=== PATIENT | female | born 1945 | race Caucasian/White ===

== ENCOUNTER → 2023-06-11 08:04 | Outpatient (REF) | payer MEDICARE, OTHER, SELFPAY | LOC: DHCBC MAIN 08:04 | PROVIDERS: ATTENDING PHYSICIAN Internal Medicine Cardiovascular Disease; FAMILY PHYSICIAN Internal Medicine | DX: R00.1 Bradycardia, unspecified (principal); I35.0 Nonrheumatic aortic (valve) stenosis | CPT/HCPCS: 93306 ==

== ENCOUNTER → 2023-07-08 08:49 | Outpatient (REF) | payer MEDICARE, OTHER, SELFPAY ==
[2023-07-08 09:22] LABS: % Basophils 0.6 % (0-2); % Eosinophils 1.3 % (0-6); % Immature Granulocytes 0.1 % (0-0.5); % Monocytes 10.4 % (1.7-9.3); % Neutrophils 60.6 % (42.2-75.2); Absolute Eosinophils 0.1 10^3/uL (0-0.7); Absolute Lymphocytes 1.8 10^3/uL (1.2-3.4); Absolute Monocytes 0.7 10^3/uL (0.1-0.6); Absolute Neutrophils 4.1 10^3/uL (1.4-6.5); Hematocrit 41.2 % (37.0-47.0); Hemoglobin 13.5 g/dL (12.0-16.0); Mean Corp Hgb Conc. 32.8 g/dL (33.0-37.0); Mean Corpuscular Hgb 30.7 pg (27.0-31.0); Mean Corpuscular Volume 93.6 fL (81.0-99.0); Mean Platelet Volume 10.3 fL (7.4-10.4); Nucleated Red Blood Cells % 0 %; Platelet Count 209 10^3/uL (130-400); Red Cell Dist. Width 13.3 % (11.5-14.5); White Blood Cell Count 6.7 10^3/uL (4.8-10.8)
[2023-07-08 09:40] LABS: ALT (SGPT) 24 U/L (0-35); AST (SGOT) 29 U/L (14-36); Albumin 4.2 g/dl (3.5-5.0); Alkaline Phosphatase 56 U/L (38-126); Blood Urea Nitrogen 29 mg/dl (7-17); Calcium 9.7 mg/dl (8.4-10.2); Carbon Dioxide 32 mmol/L (22-30); Chloride 102 mmol/L (98-107); Glucose 107 mg/dl (70-99); HDL Cholesterol 102 mg/dl; LDL Cholesterol, Calculated 112 mg/dl; Potassium 3.8 mmol/L (3.5-5.1); Sodium 140 mmol/L (135-145); Total Bilirubin 0.7 mg/dl (0.2-1.3); Total Cholesterol 227 mg/dl (50-199); Total Protein 6.9 g/dl (6.3-8.2); Triglyceride 67 mg/dl (10-149); Very Low Density Lipoprotein 13 mg/dl (0-30); eGFR > 60.00
[2023-07-08 10:39] LABS: TSH Reflex To Free T4 0.82 uIU/ml (0.47-4.68)
== END ==
LOC: REG 08:49
PROVIDERS: ATTENDING PHYSICIAN Internal Medicine
DX: E03.9 Hypothyroidism, unspecified (principal); E78.89 Other lipoprotein metabolism disorders; R42 Dizziness and giddiness
CPT/HCPCS: 36415; 80053; 80061; 84443; 85025

== ENCOUNTER 2023-09-11 10:54 | Emergency (ER) | payer MEDICARE, OTHER, SELFPAY ==
[2023-09-11 11:06] VITALS: BP 129/60
[2023-09-11 11:26] VITALS: BMI 22.4
--- NOTE | 2023-09-11 11:32 | ED.GENMED ---
History of Present Illness
<James Whitmore, DO - Last Filed: 09/11/23 13:30>
General
Chief Complaint: Heart Rate Problem
Source: patient
Exam Limitations: none
Time Seen by Provider: 09/11/23 11:25
History of Present Illness
History of Present Illness:
See MDM
Past History
<James Whitmore, DO - Last Filed: 09/11/23 13:30>
Past History
ED Past Medical History: None, Hypothyroidism and Other ( Ulcers in the 90's, kidney stones)
ED Past Surgical History: Appendectomy (gastrectomy)
Social History
Tobacco: Non-smoker
Alcohol: Occasional
Personal:
Living: with family
Phy Exam
<James Whitmore, DO - Last Filed: 09/11/23 13:30>
Physical Exam
Physical Exam:
See MDM
Course
<James Whitmore, DO - Last Filed: 09/11/23 13:30>
Orders/Labs/Results
Orders:
Orders
09/11/23 11:10
ECG [Electrocardiogram (*1)] Urgent
Reason for Study: Bradycardia / Tachycardia
EKG- Treatment ONCE
09/11/23 11:39
Complete Blood Count/With Diff Urgent
Comprehensive Metabolic Panel Urgent
Magnesium Urgent
PTT Urgent
Prothrombin Time Urgent
TSH Reflex To Free T4 Urgent
Troponin I Urgent
09/11/23 13:25
Consult Cardiology [CARDIOLOGY CONSULT] Routine
Consulting Provider: Carlos Pedro
Was physician already notified: Yes
Abnormal Lab Results
09/11/23
11:39
RBC 4.19 L 10^6/uL
(4.20-5.40)
MCH 32.0 H pg
(27.0-31.0)
Carbon Dioxide 32 H mmol/L
(22-30)
BUN 33 H mg/dl
(7-17)
Glucose 135 H mg/dl
(70-99)
09/11/23 11:39
09/11/23 11:39
Vital Signs
Initial and Last Documented VS:
Initial Vital Signs
Temp Pulse Resp BP Pulse Ox
97.5 F 34 18 129/60 97
09/11/23 11:06 09/11/23 11:06 09/11/23 11:06 09/11/23 11:06 09/11/23 11:06
Last Documented Vital Signs
Temp Pulse Resp BP Pulse Ox
97.5 F 52 15 132/52 97
09/11/23 11:06 09/11/23 13:00 09/11/23 13:00 09/11/23 12:00 09/11/23 12:15
<Bharathi Ross, - Last Filed: 09/11/23 14:56>
Orders/Labs/Results
Orders:
Orders
09/11/23 11:10
ECG [Electrocardiogram (*1)] Urgent
Reason for Study: Bradycardia / Tachycardia
EKG- Treatment ONCE
09/11/23 11:39
Complete Blood Count/With Diff Urgent
Comprehensive Metabolic Panel Urgent
Magnesium Urgent
PTT Urgent
Prothrombin Time Urgent
TSH Reflex To Free T4 Urgent
Troponin I Urgent
09/11/23 13:25
Consult Cardiology [CARDIOLOGY CONSULT] Routine
Consulting Provider: Carlos Pedro
Was physician already notified: Yes
Abnormal Lab Results
09/11/23
11:39
RBC 4.19 L 10^6/uL
(4.20-5.40)
MCH 32.0 H pg
(27.0-31.0)
Carbon Dioxide 32 H mmol/L
(22-30)
BUN 33 H mg/dl
(7-17)
Glucose 135 H mg/dl
(70-99)
09/11/23 11:39
09/11/23 11:39
Vital Signs
Initial and Last Documented VS:
Initial Vital Signs
Temp Pulse Resp BP Pulse Ox
97.5 F 34 18 129/60 97
09/11/23 11:06 09/11/23 11:06 09/11/23 11:06 09/11/23 11:06 09/11/23 11:06
Last Documented Vital Signs
Temp Pulse Resp BP Pulse Ox
97.5 F 52 15 132/52 97
09/11/23 11:06 09/11/23 13:00 09/11/23 13:00 09/11/23 12:00 09/11/23 12:15
<James Whitmore, DO - Last Filed: 09/11/23 13:30>
MDM/Problems Addressed
Differential Diagnosis Includes:
HPI and MDM Narrative:
78-year-old female presenting for evaluation of bradycardia. Patient was receiving physical therapy and the therapist noted that her pulse was ranging anywhere from 20-40. Patient does admit to mild weakness and fatigue. This is new for the
patient. She denies any prior cardiac related issues. She does see Dr. Lopez from cardiology but denies prior history of stents. Patient currently denying chest pain or shortness of breath. While lying in bed, she denies any complaints
Given the symptomatic bradycardia, will obtain basic blood work and discussed case with cardiology
Physical exam
General: Well appearing and non-toxic
HEENT: protecting airway
Neck: appears supple
CV: No evidence of cyanosis. Bradycardic
Resp: No accessory muscle use
Abd: Non-distended
Extremities: No deformities
Neuro: alert
Psych: Normal affect
Skin: Intact
Problems Addressed including Acute and Chronic Conditions affecting care:
1. Symptomatic bradycardia
Acuity: acute
Prognosis: stable
Details: Given her symptoms, will obtain basic blood work and discussed case with cardiology
Updates
Blood work without clinical significance. Patient remains symptom-free. Patient intermittently going into bigeminy
Case discussed with cardiology who will evaluate
Differential Diagnosis (but not limited to): Hypothyroidism, bradycardia, AV block
Testing considered: Chest x-ray
Drug therapy (if applicable): OTC meds, please see d/c instruction regarding Rx drugs
Amount and/or Complexity of Data Reviewed
Clinical info obtained from: Patient
External data reviewed: N/A
Labs I independently reviewed (but not limited to): Electrolytes, troponin and thyroid within normal limits
Radiology: N/A
Pulse Ox: not hypoxic
EKG independently reviewed: Sinus bradycardia, normal axis, no STEMI
Vat Cleaner: Sinus bradycardia with multiple PVCs
Critical Care: N/A
Risk of Complication:
Social Determinants of health: Good social support
Discussed with other providers: Cardiology
Escalation of Care includes Admit/Obs: Disposition will be made pending cardiology evaluation
Occasional wrong word or 'sound a like' substitutions may have occurred due to the inherent limitations of voice recognition software. Read the chart carefully and recognize, using context, where substitutions have occurred.
<James Whitmore, DO - Last Filed: 09/11/23 13:30>
*Critical Care Note
Total Time (30-74mins, 75-104mins- exclusive of procedures): Not Applicable
<Bharathi Ross, DO - Last Filed: 09/11/23 14:56>
Update Note
Update Note:
Patient seen and examined by Dr. Pedro. Aware of sinus bradycardia and feels she is stable for outpatient follow-up and management. Patient does remain otherwise hemodynamically stable and grossly asymptomatic. Dr. Pedro arranged outpatient
follow-up
ED Attending Note
<James Whitmore, DO - Last Filed: 09/11/23 13:30>
-
Portions of this chart may have been created with voice recognition software.� Occasional wrong word or��sound alike� substitutions may have occurred due to the inherent limitations of voice recognition software.
Discharge Plan
Departure
Patient Disposition: Home (Routine Discharge)
Date of Disposition: 09/11/23
Time of Disposition: 14:55
Patient with high blood pressure during this ER visit?: No
Discharge Problem:
Bradyarrhythmia
Prescriptions:
No Action
levothyroxine 25 MCG tablet
25 mcg PO DAILY
hydrochlorothiazide [Microzide] 12.5 MG capsule
12.5 mg PO DAILY
coenzyme Q10 [CoQ-10] 100 MG capsule
100 mg PO DAILY
aspirin [Guillermo Low Dose Aspirin] 81 MG tablet,delayed release (DR/EC)
81 mg PO DAILY
glucosamine-chondroitin [Cosamin DS] 1 EACH tablet
2 ea PO DAILY
levocetirizine [Xyzal] 5 MG tablet
5 mg PO HS
Women's 50 Plus Daily Formula 1 EACH tablet
2 ea PO DAILY
cholecalciferol (vitamin D3) [Vitamin D3] 2,000 UNIT capsule
2,000 unit PO DAILY
Referrals:
Anabel Yancey MD [Family Provider] -
Activity Restrictions/Additional Instructions:
Please follow-up with cardiology as advised. Return immediately for passing out episode, shortness of breath, weakness, or any other concerns.
Interventions
Interventions:
*Risk Screen - Suicide Last Done: 09/11/23 11:09
*General Assessment Last Done: 09/11/23 11:07
*Neglect/Abuse Screening Last Done: 09/11/23 11:07
ED- Fall Risk Assessment Last Done: 09/11/23 11:28
*ED COVID-19 Vaccine History Last Done: 09/11/23 11:31
ED- Cardiac Assessment Last Done: 09/11/23 11:28
ED- Pulmonary Assessment Last Done: 09/11/23 11:28
Discharge Date and Time
Print Language: SERBIAN
[2023-09-11 11:50] LABS: % Basophils 0.4 % (0-2); % Eosinophils 1.4 % (0-6); % Immature Granulocytes 0.1 % (0-0.5); % Lymphocytes 20.5 % (20.5-51.1); % Monocytes 8.2 % (1.7-9.3); % Neutrophils 69.4 % (42.2-75.2); Absolute Eosinophils 0.1 10^3/uL (0-0.7); Absolute Lymphocytes 1.6 10^3/uL (1.2-3.4); Absolute Monocytes 0.6 10^3/uL (0.1-0.6); Absolute Neutrophils 5.3 10^3/uL (1.4-6.5); Hematocrit 39.2 % (37.0-47.0); Hemoglobin 13.4 g/dL (12.0-16.0); Mean Corp Hgb Conc. 34.2 g/dL (33.0-37.0); Mean Corpuscular Volume 93.6 fL (81.0-99.0); Mean Platelet Volume 10.1 fL (7.4-10.4); Nucleated Red Blood Cells % 0 %; Platelet Count 214 10^3/uL (130-400); Red Blood Cell Count 4.19 10^6/uL (4.20-5.40); Red Cell Dist. Width 13.5 % (11.5-14.5); White Blood Cell Count 7.7 10^3/uL (4.8-10.8)
[2023-09-11 12:00] VITALS: BP 132/52
[2023-09-11 12:11] LABS: APTT 30.4 Sec (23.4-35.0); INR 1.06; PT 13.8 Sec (11.4-14.6)
[2023-09-11 12:24] LABS: ALT (SGPT) 19 U/L (0-35); AST (SGOT) 29 U/L (14-36); Albumin 4.3 g/dl (3.5-5.0); Alkaline Phosphatase 59 U/L (38-126); Blood Urea Nitrogen 33 mg/dl (7-17); Calcium 10.1 mg/dl (8.4-10.2); Carbon Dioxide 32 mmol/L (22-30); Chloride 102 mmol/L (98-107); Estimated Creatinine Clearance 55 ml/min; Glucose 135 mg/dl (70-99); Magnesium 2.2 mg/dl (1.6-2.3); Potassium 4.5 mmol/L (3.5-5.1); Sodium 139 mmol/L (135-145); Total Bilirubin 0.8 mg/dl (0.2-1.3); Total Protein 6.8 g/dl (6.3-8.2); eGFR > 60.00
[2023-09-11 12:36] LABS: Troponin I < 0.012 ng/ml
[2023-09-11 12:54] LABS: TSH Reflex To Free T4 0.52 uIU/ml (0.47-4.68)
[2023-09-11 13:00] VITALS: BP 121/86
--- NOTE | 2023-09-11 13:37 | CON.CAR ---
Addendum entered and electronically signed by Carlos Pedro MD 09/11/23 15:29:
78 yo female with PMH of sinus bradycardia, unspecified cardiomyopathy EF 40-45%, moderate and MR, frequent PVC's. Referred to ED from PT for bradycardia. Patient has no cardiac complaints: no dizziness, syncope, CP, SOB. Exam with irregular
rhythm (PVC's noted on tele), II/ systolic murmur at RUSB, no edema. Tele: SB, frequent PVC's, HR as low at 40. She had 2 week monitor earlier this year with avg HR sinus kulwant 57 bpm, no advanced heart block, and 14% PVC burden.
Asymptomatic bradycardia. Asymptomatic PVC's. She will monitor for symptoms. She was advised that HR may be underestimated on automated devices setting of frequent PVC's.
Outpatient follow up.
Original Note:
Consultation
Consultation Request
Date/Time Consultation Requested: 09/11/23 1325
Date/Time Consultation Performed: 09/11/23 1330
Requesting Provider: Dr. Whitmore
Performing Provider: Stephanie CAUSEY for Dr. Pedro
Reason for Consultation: bradycardia
Medical History
-
Chief Complaint: bradycardia
History of Present Illness:
78 y/o female with bradycardia, CM (type unknown EF 40-45%), moderate and MR, hypothyroidism, and memory impairment who is here for evaluation for bradycardia. Briefly, she recently saw neurology for memory issues and they recommended PT and
speech evals (PT for some balance/feet shuffling issues). During her PT evaluation today, they checked vital signs with a machine with HR checking capabilities and it reportedly read as low as 20's. They recommended she go to ER. In ER, EKG shows SB
at 40 BPM. Monitor shows SB 40's-50's with bigeminy at times. Patient is feeling quite well and denies any symptoms at all, including SOB, CP, light-headedness/dizziness, or syncope. She remains active and does so without any of those symptoms. In
ER, Dr. Whitmore said that he walked with her and HR increased appropriately. She looks well and is in good spirits in the ER, present with her son. She hopes to be d/c'd from ER.
Past Medical History
Past Medical History: Arrhythmias, Hypothyroidism, Valvular Disease and Other (CM as above)
Social History
Living: Alone
Family History
Family History: Reviewed & Not Pertinent
Allergies / Home Medications
Allergy/AdvReac Type Severity Reaction Status Date / Time
Sulfa (Sulfonamide Allergy Severe Rash Verified 09/11/23 11:06
Antibiotics)
sulfisoxazole Allergy Severe Rash Verified 09/11/23 11:06
tetracycline Allergy Severe Rash Verified 09/11/23 11:06
Tetracyclines Allergy Severe Rash Verified 09/11/23 11:06
�Medication �Instructions �Recorded �Confirmed �Type
coenzyme Q10 100 mg capsule 100 mg PO DAILY 11/20/10 09/11/23 History
(CoQ-10)
hydrochlorothiazide 12.5 mg 12.5 mg PO DAILY 11/20/10 09/11/23 History
capsule (Microzide)
levothyroxine 25 mcg tablet 25 mcg PO DAILY 11/20/10 09/11/23 History
aspirin 81 mg tablet,delayed 81 mg PO DAILY 01/17/14 09/11/23 History
release (Guillermo Low Dose Aspirin)
cholecalciferol (vitamin D3) 50 2,000 unit PO DAILY 04/21/19 09/11/23 History
mcg (2,000 unit) capsule (Vitamin
D3)
glucosamine-chondroitin 500 mg-400 2 ea PO DAILY 04/21/19 09/11/23 History
mg tablet (Cosamin DS)
levocetirizine 5 mg tablet (Xyzal) 5 mg PO HS 04/21/19 09/11/23 History
gdztpybe-zce-iyvlx ac 400 2 ea PO DAILY 04/21/19 09/11/23 History
mcg-calcium carb 500 mg-vit K1 20
mcg tablet (Women's 50 Plus Daily
Formula)
Review of Systems
-
History Source: Patient and Family
All other systems: Negative unless noted (patient denies any symptoms)
Constitutional: No Symptoms
Physical Exam
Vital Signs
Temp Pulse Resp BP Pulse Ox
97.5 F 52 15 132/52 97
09/11/23 11:06 09/11/23 13:00 09/11/23 13:00 09/11/23 12:00 09/11/23 12:15
Lab Results
09/11/23 11:39
09/11/23 11:39
Troponin I < 0.012 ng/ml 09/11/23 11:39
Physical Exam
General: Well Developed, Well Nourished and No Apparent Distress
HEENT: Normocephalic and Anicteric
Respiratory: Clear and Non Labored Respirations
Cardiac: Regular Rhythm (SB)
Musculoskeletal: No Edema
Skin: Warm and Dry
Neuro: AO x 3
Psych: Calm
Impression / Plan
-
Bradycardia:
-completely asymptomatic and patient looks and feels well; no advanced heart block or prolonged pauses or severe bradycardia noted on telemetry
-patient wore 5 day heart monitor in June and it was unremarkable overall (HR 38-111 BPM, average 57 BPM, no prolonged pauses, 14% PVC's, brief AT, AIVR)
-HR 40's-50's in ER on telemetry. EKG shows SB at 40 BPM. I suspect that the 20's-30's BPM HR on machine/PT assessment were underestimated due to bigeminy.
-we reviewed symptoms that would be concerning and require medical evaluation
-no indication for pacemaker at this time
Cardiomyopathy:
-type unknown, EF 40-45%
-Dr. Lopez is following as OP
Valvular disease, cardiac:
-moderate MR and
-follow over time
-no symptoms
Hypothyroidism:
-TSH stable in ER
Data Reviewed
-
EKG: Tracing Personally Visualized and interpreted (SB at 40 BPM)
Medical Tests (Nuc Med, Echo etc): Report Reviewed by me (06/11/23 echo: Dilated left ventricle with mildly reduced ejection fraction. Global hypokinesis. EF 40-45% Moderate aortic stenosis. Mild aortic regurgitation. Moderate mitral regurgitation.
Small pericardial effusion.)
Labs: Labs Reviewed by me
[2023-09-11 14:00] VITALS: BP 148/74
[2023-09-11 15:02] VITALS: BP 148/104
[2023-09-11 15:12] VITALS: BP 143/105
== END 2023-09-11 15:17 | disposition home or self-care (01) ==
LOC: EMR 10:54
PROVIDERS: CONSULT PHYSICIAN Internal Medicine; EMERGENCY PHYSICIAN Student in an Organized Health Care Education/Training Program; FAMILY PHYSICIAN Internal Medicine
DX: I49.8 Other specified cardiac arrhythmias (principal)
CPT/HCPCS: 99284; 80053; 83735; 84443; 84484; 85025; 85610; 85730; 93005

== ENCOUNTER → 2023-09-18 07:40 | Outpatient (REF) | payer MEDICARE, OTHER, SELFPAY | LOC: PAVMRI 07:40 | PROVIDERS: ATTENDING PHYSICIAN Psychiatry & Neurology Neurology; FAMILY PHYSICIAN Internal Medicine | DX: G31.84 Mild cognitive impairment of uncertain or unknown etiology (principal); D32.9 Benign neoplasm of meninges, unspecified | CPT/HCPCS: 70553; A9575 ==

== ENCOUNTER 2023-09-22 07:45 | Outpatient (RCR) | payer MEDICARE, OTHER, SELFPAY | END 2023-09-22 23:59 | disposition home or self-care (01) | LOC: RST 07:45 | PROVIDERS: ATTENDING PHYSICIAN Psychiatry & Neurology Neurology; PRIMARYCARE PHYSICIAN Internal Medicine | DX: G31.84 Mild cognitive impairment of uncertain or unknown etiology (principal); Z73.6 Limitation of activities due to disability; R42 Dizziness and giddiness | CPT/HCPCS: 96125; 97110; 97112; 97129; 97130; 97162; 97167; 97530; 97535 ==

== ENCOUNTER 2023-10-24 09:32 | Outpatient (RCR) | payer MEDICARE, OTHER, SELFPAY | END 2023-10-24 23:59 | disposition home or self-care (01) | LOC: RST 09:32 | PROVIDERS: ATTENDING PHYSICIAN Psychiatry & Neurology Neurology; PRIMARYCARE PHYSICIAN Internal Medicine | DX: G31.84 Mild cognitive impairment of uncertain or unknown etiology (principal); R42 Dizziness and giddiness; Z73.6 Limitation of activities due to disability | CPT/HCPCS: 97110; 97112; 97129; 97130; 97530; 97535 ==

== ENCOUNTER 2023-11-24 14:28 | Outpatient (RCR) | payer MEDICARE, OTHER, SELFPAY | END 2023-11-24 23:59 | disposition home or self-care (01) | LOC: RST 14:28 | PROVIDERS: ATTENDING PHYSICIAN Psychiatry & Neurology Neurology; PRIMARYCARE PHYSICIAN Internal Medicine | DX: G31.84 Mild cognitive impairment of uncertain or unknown etiology (principal); Z73.6 Limitation of activities due to disability; R41.841 Cognitive communication deficit | CPT/HCPCS: 97129; 97130; 97530; 97535 ==

== ENCOUNTER 2024-11-19 11:34 | Inpatient (IN) | payer MEDICARE, OTHER, SELFPAY ==
[2024-11-17] VITALS (10 sets, daily range): BP systolic 73–112; BP diastolic 52–92; PULSE 73–76
[2024-11-17 19:42] LABS: Glucose - Point of Care 255 mg/dl (70-99)
[2024-11-17 19:50] LABS: Hematocrit 37.0 % (37.0-47.0); Hemoglobin 12.2 g/dL (12.0-16.0); Mean Corp Hgb Conc. 33.0 g/dL (33.0-37.0); Mean Corpuscular Volume 92.5 fL (81.0-99.0); Nucleated Red Blood Cells % 0 %; Platelet Count 219 10^3/uL (130-400); Red Cell Dist. Width 13.5 % (11.5-14.5)
[2024-11-17 20:12] LABS: ALT (SGPT) 19 U/L (0-35); AST (SGOT) 25 U/L (14-36); Albumin 4.0 g/dl (3.5-5.0); Alkaline Phosphatase 59 U/L (38-126); Blood Urea Nitrogen 29 mg/dl (7-17); Calcium 9.0 mg/dl (8.4-10.2); Carbon Dioxide 23 mmol/L (22-30); Chloride 108 mmol/L (98-107); Glucose 310 mg/dl (70-99); Potassium 4.3 mmol/L (3.5-5.1); Sodium 136 mmol/L (135-145); Total Protein 6.4 g/dl (6.3-8.2); eGFR > 60.00
[2024-11-17 20:14] LABS: Troponin I < 0.012 ng/ml
--- NOTE | 2024-11-17 20:58 | ED.GENMED ---
History of Present Illness
<Mary Belle NP - Last Filed: 11/18/24 00:04>
General
Chief Complaint: Dizziness
Source: patient
Exam Limitations: none
Time Seen by Provider: 11/17/24 19:34
Nursing documentation reviewed up to this point in time: agreed with
History of Present Illness
History of Present Illness:
Patient to ED after syncopal episode at home. SHe was out walking her dog and when she came inside she became weak and passed out. Witnessed by another resident. EMS noted BP 70 systolic. Given 1L NSS in route to ED. She denies headache
dizziness, SOB, CP/pressure. No abdominal pain. No prior history of same.
Past History
<Mary Belle TOOL SPECIALIST - Last Filed: 11/18/24 00:04>
Past History
ED Past Medical History: Hypothyroidism and Other ( Ulcers in the 90's, kidney stones)
ED Past Surgical History: Appendectomy (gastrectomy) and Gynecological (hysterectomy)
Social History
Tobacco: Former smoker
Alcohol: Occasional
Personal:
Living: with family
Review of Systems
<Mary Belle TOOL SPECIALIST - Last Filed: 11/18/24 00:04>
Review of Systems
Allergies reviewed?: Yes
All Other Systems: ROS reviewed and negative except as documented in HPI and ROS
Constitutional: Reports no symptoms
EENT: Reports no symptoms
Respiratory: Reports no symptoms
Cardiac: Reports syncope
ABD/GI: Reports no symptoms
: Reports no symptoms
Musculoskeletal: Reports no symptoms
Skin: Reports no symptoms
Neurological: Reports weakness
Psychiatric: Reports no symptoms
Phy Exam
<Mary Belle TOOL SPECIALIST - Last Filed: 11/18/24 00:04>
General Physical Exam
General Presentation: mild distress
General Skin: warm and dry
General Habitus: elderly
General Mental: alert
General Hydration: dry mucous membranes
Eye Exam
Eye Exam: PERRL, EOMI, conjunctiva normal and globe normal
Cardiovascular Exam
Cardiovascular Exam: regular rate/rhythm and no edema
Pulmonary Exam
Pulmonary Exam: lungs clear and no respiratory distress
Gastrointestinal Exam
Gastrointestinal Exam: normal bowel sounds, non tender, soft, no organomegaly, no pulsatile mass and non distended
Neurological Exam
Neurological Exam: alert, oriented x3, CN II-XII intact, no motor deficits, no sensory deficits and speech normal
Musculoskeletal Exam
Musculoskeletal Exam: full ROM and neuro vasc intact
Skin Exam
Skin Exam: normal color, warm/dry and no rash
Psychiatric Exam
Psychiatric Exam: normal mood/affect
Course
<Mary Belle NP - Last Filed: 11/18/24 00:04>
Orders/Labs/Results
Orders:
Orders
11/17/24 Dinner
Regular
At Your Request: Limited Participation
Does patient need a safe tray?: No
11/17/24 19:31
Electrocardiogram (*1) Urgent
Reason for Study: Other
Other Reason for Exam: Possible Sepsis
EKG- Treatment ONCE
11/17/24 19:43
Complete Blood Count/With Diff Urgent
Comprehensive Metabolic Panel Urgent
Troponin I Urgent
11/17/24 19:54
Orthostatic VS- Treatment ONCE
11/17/24 21:04
CT Head W/o Iv Contrast Urgent
Comment:
Reason For Exam: fall
11/17/24 21:15
0.9% Sodium Chloride 1000 ml [Nss] 1,000 ml IV 125 mls/hr
11/17/24 23:08
Urinalysis Reflex To Culture Urgent
Date Specimen was Collected: 11/17/24
Time Specimen was Collected: 20:32
11/17/24 23:20
Admit/Transfer Patient As Directed
Co-Sign Provider:
Level of Care: Observation services
Assign to:: Telemetry
Physician / Group: anthony
Diagnosis: syncope
Reason for Telemetry: Syncope
Date to Stop Telemetry: 11/19/24
Time to Stop Telemetry: 11:00
Code Status As Directed
Resuscitation Status: Do not resuscitate
Reached after discussion with pt or family/Healthcare POA: Yes
PRN Pain Medication Management As Directed
May give lesser potent ordered pain med per pt: Yes
preference::
Protocol:: Medication orders for pain may be administered in a
manner that supports deferring to patient preference
when the pt is:
- Requesting an ordered lesser potent pain medication.
Least to most potent pain medications are defined
as: acetaminophen < NSAID < tramadol < opioids
(morphine, oxycodone, hydromorphone).
- Requesting a lesser dose of the same medication IF
ORDERED.
- Requesting a less intrusive route of administration
if both routes are prescribed by the provider (PO <
IV).
11/17/24 23:21
DNR Bracelet Application ONCE
11/17/24 23:38
Activity As Directed
Activity Level: As Tolerated
Vital Signs As Directed
Frequency: Per unit guidelines
DX Deep Vein Thrombosis Video Routine
11/18/24 05:39
Urine Microscopic Reflex Cult Urgent
Urine Culture Urgent
IAN Source: U
Specimen Description:
Date Specimen was Collected: 11/17/24
Time Specimen was Collected: 20:32
11/18/24 06:30
Complete Blood Count/With Diff IN AM
Comprehensive Metabolic Panel IN AM
11/18/24 08:00
Heparin 5,000 units SC Q12
11/19/24 11:00
DC Protocol for Telemetry ONCE
Abnormal Lab Results
11/17/24 11/17/24
19:40 19:43
RBC 4.00 L 10^6/uL
(4.20-5.40)
Lymphocytes % 19.7 L %
(20.5-51.1)
Chloride 108 H mmol/L
(98-107)
BUN 29 H mg/dl
(7-17)
Glucose 310 H mg/dl
(70-99)
POC Glucose 255 H mg/dl
(70-99)
11/17/24 19:43
11/17/24 19:43
Vital Signs
Initial and Last Documented VS:
Initial Vital Signs
BP
112/92
11/17/24 19:33
Last Documented Vital Signs
Temp Pulse Resp BP Pulse Ox
97.8 F 57 18 142/66 97
11/18/24 07:15 11/18/24 07:15 11/18/24 07:15 11/18/24 07:15 11/18/24 07:15
<Brandan Gill MD - Last Filed: 11/18/24 11:00>
Orders/Labs/Results
Orders:
Orders
11/17/24 Dinner
Regular
At Your Request: Limited Participation
Does patient need a safe tray?: No
11/17/24 19:31
Electrocardiogram (*1) Urgent
Reason for Study: Other
Other Reason for Exam: Possible Sepsis
EKG- Treatment ONCE
11/17/24 19:43
Complete Blood Count/With Diff Urgent
Comprehensive Metabolic Panel Urgent
Troponin I Urgent
11/17/24 19:54
Orthostatic VS- Treatment ONCE
11/17/24 21:04
CT Head W/o Iv Contrast Urgent
Comment:
Reason For Exam: fall
11/17/24 21:15
0.9% Sodium Chloride 1000 ml [Nss] 1,000 ml IV 125 mls/hr
11/17/24 23:08
Urinalysis Reflex To Culture Urgent
Date Specimen was Collected: 11/17/24
Time Specimen was Collected: 20:32
11/17/24 23:20
Admit/Transfer Patient As Directed
Co-Sign Provider:
Level of Care: Observation services
Assign to:: Telemetry
Physician / Group: anthony
Diagnosis: syncope
Reason for Telemetry: Syncope
Date to Stop Telemetry: 11/19/24
Time to Stop Telemetry: 11:00
Code Status As Directed
Resuscitation Status: Do not resuscitate
Reached after discussion with pt or family/Healthcare POA: Yes
PRN Pain Medication Management As Directed
May give lesser potent ordered pain med per pt: Yes
preference::
Protocol:: Medication orders for pain may be administered in a
manner that supports deferring to patient preference
when the pt is:
- Requesting an ordered lesser potent pain medication.
Least to most potent pain medications are defined
as: acetaminophen < NSAID < tramadol < opioids
(morphine, oxycodone, hydromorphone).
- Requesting a lesser dose of the same medication IF
ORDERED.
- Requesting a less intrusive route of administration
if both routes are prescribed by the provider (PO <
IV).
11/17/24 23:21
DNR Bracelet Application ONCE
11/17/24 23:38
Activity As Directed
Activity Level: As Tolerated
Vital Signs As Directed
Frequency: Per unit guidelines
DX Deep Vein Thrombosis Video Routine
11/18/24 05:39
Urine Microscopic Reflex Cult Urgent
Urine Culture Urgent
IAN Source: U
Specimen Description:
Date Specimen was Collected: 11/17/24
Time Specimen was Collected: 20:32
11/18/24 06:30
Complete Blood Count/With Diff IN AM
Comprehensive Metabolic Panel IN AM
11/18/24 08:00
Heparin 5,000 units SC Q12
11/19/24 11:00
DC Protocol for Telemetry ONCE
Abnormal Lab Results
11/17/24 11/17/24
19:40 19:43
RBC 4.00 L 10^6/uL
(4.20-5.40)
Lymphocytes % 19.7 L %
(20.5-51.1)
Chloride 108 H mmol/L
(98-107)
BUN 29 H mg/dl
(7-17)
Glucose 310 H mg/dl
(70-99)
POC Glucose 255 H mg/dl
(70-99)
11/17/24 19:43
11/17/24 19:43
Vital Signs
Initial and Last Documented VS:
Initial Vital Signs
BP
112/92
11/17/24 19:33
Last Documented Vital Signs
Temp Pulse Resp BP Pulse Ox
97.8 F 57 18 142/66 97
11/18/24 07:15 11/18/24 07:15 11/18/24 07:15 11/18/24 07:15 11/18/24 07:15
<Mary Belle NP - Last Filed: 11/18/24 00:04>
*Radiology
Radiology exam reviewed: radiology read reviewed
*Pulse Oximetry
SaO2: 97
Oxygen Mode of Delivery: Room air
Patient hypoxic: no
*Critical Care Note
Total Time (30-74mins, 75-104mins- exclusive of procedures): Not Applicable
<Mary Belle NP - Last Filed: 11/18/24 00:04>
Update Note
Update Note:
Patient to ED after syncopal episode tonight. No prior history of syncope. No history of hypotension. VS reviewed +tilt. Appears dry. given 1LNSS by EMS in route to ED. Maintenance fluid infusing. Random glucose 310. No history of diabetes.
Reports increased thirst, no change in urination. Case discussed with Dr. Gill who also evalutated this patient. Will admit to hospitalist service for syncope, weakness, hypotension.
ED Attending Note
<Mary Belle NP - Last Filed: 11/18/24 00:04>
-
Portions of this chart may have been created with voice recognition software.� Occasional wrong word or��sound alike� substitutions may have occurred due to the inherent limitations of voice recognition software.
<Brandan Gill MD - Last Filed: 11/18/24 11:00>
ED Attending Note
Patient seen and examined by attending physician: Yes
ED Attending Note:
Patient presents to ED for evaluation after syncopal episode at home. Patient states that she had returned home from walking her dog, when she felt lightheaded and then subsequently passed out. Per paramedics, patient was hypotensive at scene. At
the time evaluation in ED, patient has no complaints. Denies headache. Denies neck pain. Denies preceding chest pain or chest palpitations. Denies shortness of breath. Denies nausea or vomiting. Denies recent travel or surgery. Denies back
pain. Denies leg pain or swelling. Denies previous history of similar symptoms. Denies loss of appetite. Denies recent illness. Denies recent change in diet. Denies recent change in medications.
Physical Exam
General: no apparent distress, not acutely ill. afebrile
Head: nc/at. eomi
Neck: supple. normal range of motion.
Heart: s1/s2 regular rate and rhythm
Lungs: no acute respiratory distress. clear bilaterally
Abdomen: normal bowel sounds. not tender.
Neuro: alert and oriented x 3. no focal neurological deficits
Skin: no rash
Psychiatric: well kept. interactive and cooperative
Extremities: no edema. no calf tenderness
Orthostatic vital signs noted, significant hypotension with positional change. History and exam consistent with syncope, potentially secondary to vasovagal response from dehydration. Patient will be admitted for further evaluation and treatment.
Discharge Plan
Departure
Patient Disposition: Admit
Date of Disposition: 11/17/24
Time of Disposition: 22:23
Presentation/result/management discussed w/ accepting MD/DO: Hospitalist
Patient with high blood pressure during this ER visit?: No
Condition: Fair
Covid-19: Not Applicable
Discharge Problem:
Syncope, Weakness, Acute hypotension
Interventions
Interventions:
*Risk Screen - Suicide Last Done: 11/18/24 02:47
*General Assessment Last Done: 11/17/24 19:34
*Neglect/Abuse Screening Last Done: 11/17/24 19:34
*ED- Fall Risk Assessment Last Done: 11/18/24 02:25
*ED COVID-19 Vaccine History Last Done: 11/18/24 02:47
*Nursing Disposition Last Done: 11/18/24 02:25
ED- Neurological Assessment Last Done: 11/17/24 23:50
ED- Cardiac Assessment Last Done: 11/17/24 23:50
ED Swallowing Screen Last Done: 11/17/24 22:29
Discharge Date and Time
Discharge Date/Time: 11/18/24 02:26
[2024-11-17] MEDS: NSS 1000 IV (21:08)
--- NOTE | 2024-11-17 23:22 | HPS.HSE ---
Family Physician
-
Family Physician: Anabel Yancey
Chief Complaint
-
syncope
History of Present Illness
79-year-old female past medical history of chronic hypotension, hypothyroidism, gastric ulcer, kidney stones, presenting with syncopal episode at home. She was walking her dog when she came inside she became weak and passed out. This was witnessed
by another resident. She passed out suddenly and denies any preceding dizziness, nausea, tunnel vision or headache. Syncopal episode only lasted few seconds no chest pain or shortness of breath. EMS noted blood pressure 70 she was given 1 L of IV
fluids.
She states that her blood pressure is normally around 90s which is normal for her and she does not have symptoms. She has been eating and drinking appropriately. No recent weight loss.
She denies any symptoms of infection such as fever, upper respiratory symptoms, nausea or vomiting or diarrhea or urinary symptoms. She denies any prior cardiac history. She denies any new medications.
No family history of heart disease.
She denies any significant amount of alcohol use. Denies smoking.
Medical History
Past Medical History
Past Medical History: Reports Other (chronic hypotension, hypothyroidism, gastric ulcer, kidney stones)
Past Surgical History: Reports Other (Appendectomy (gastrectomy) and Gynecological (hysterectomy))
Social History
Tobacco: Non-smoker
Alcohol: None
Drug: None
Family History
Family History: Not pertinent
Allergies / Home Medications
Allergies reflects when Allergies were last updated in [employer].
Home Medications with original date entered in [employer]
Allergy/Medication List:
Allergies
Allergy/AdvReac Type Severity Reaction Status Date / Time
Sulfa (Sulfonamide Allergy Severe Rash Verified 11/17/24 19:40
Antibiotics)
sulfisoxazole Allergy Severe Rash Verified 11/17/24 19:40
tetracycline Allergy Severe Rash Verified 11/17/24 19:40
Tetracyclines Allergy Severe Rash Verified 11/17/24 19:40
Home Medications
coenzyme Q10 100 mg capsule (CoQ-10) 100 mg PO DAILY 11/20/10
hydrochlorothiazide 12.5 mg capsule (Microzide) 12.5 mg PO DAILY 11/20/10
levothyroxine 25 mcg tablet 25 mcg PO DAILY 11/20/10
aspirin 81 mg tablet,delayed release (Guillermo Low Dose Aspirin) 81 mg PO DAILY 01/17/14
cholecalciferol (vitamin D3) 50 mcg (2,000 unit) capsule (Vitamin D3) 2,000 unit PO DAILY 04/21/19
glucosamine-chondroitin 500 mg-400 mg tablet (Cosamin DS) 2 ea PO DAILY 04/21/19
levocetirizine 5 mg tablet (Xyzal) 5 mg PO HS 04/21/19
csmjumav-qsd-xelpw ac 400 mcg-calcium carb 500 mg-vit K1 20 mcg tablet (Women's 50 Plus Daily Formula) 2 ea PO DAILY 04/21/19
Review of Systems
-
History Source: Patient
A 12 point ROS was completed and negative except as noted: Yes
Constitutional: Reports No Symptoms
EENT: Reports No Symptoms
Respiratory: Reports No Symptoms
Cardiac: Reports No Symptoms
Abdomen/GI: Reports No Symptoms
: Reports No Symptoms
Musculoskeletal: Reports No Symptoms
Skin: Reports No Symptoms
Neurological: Reports No Symptoms
Endocrine: Reports No Symptoms
Hematologic/Lymphatic: Reports No Symptoms
Psych: Reports No Symptoms
Physical Exam
Vital Signs
Vital Signs
Temp Pulse Resp BP Pulse Ox
98 F 84 20 107/60 95
11/17/24 19:34 11/17/24 23:04 11/17/24 23:07 11/17/24 22:52 11/17/24 22:53
Physical Exam
General: Well Developed, Well Nourished and No Apparent Distress
HEENT: NormoCephalic, Moist mucous membranes and Atraumatic
Respiratory: Clear
Cardiac: S1/S2 and Regular Rhythm; No Murmur or Rub
GI: Soft, Non Tender, Non Distended and Normal Bowel Sounds; No Organomegaly
Rectal: Deferred by Provider
Musculoskeletal: No Clubbing, No Cyanosis and No Edema
Skin: No Rash
Neuro: Nonfocal/grossly intact
Laboratory Results
-
11/17/24 19:43
11/17/24 19:43
Laboratory Results
Total Bilirubin 1.0 mg/dl (0.2-1.3) 11/17/24 19:43
AST 25 U/L (14-36) 11/17/24:43
ALT 19 U/L (0-35) 11/17/24:43
Alkaline Phosphatase 59 U/L (38-126) 11/17/24:43
Troponin I < 0.012 ng/ml 11/17/24:43
Data Reviewed
-
Lab Data: Labs Reviewed by me
Old Records: Reviewed
Impression/Plan
-
IMPRESSION:
PLAN:
# Syncopal episode secondary to hypotension, possible she had vagal episode superimposed on chronic hypotension
-EKG shows accelerated junctional rhythm with occasional PVCs
-Blood pressure initially 70 which responded to IV fluids, continue fluids
-Blood pressure currently 100 systolic
- CT head shows no acute intracranial abnormality
- No symptoms of infection
- Check orthostatic vital signs
- If blood pressure improved, and orthostatics negative tomorrow can likely be discharged
Hypothyroidism
- Continue levothyroxine
History of gastric ulcer
History of kidney stones
DNR/DNI
DVT prophylaxis�heparin
Regular diet
[2024-11-18] VITALS (11 sets, daily range): BP systolic 117–157; BP diastolic 51–76; PULSE 54–65; BMI 23.8
--- NOTE | 2024-11-18 03:43 | PTCARENOTE ---
received pt from ED at 0230. pt ambulated from stretcher to bed. pt A&O x 3. pt offers no current complaints and appears comfortable in bed. plan of care ongoing.
[2024-11-18] MEDS: NSS 1000 IV ×3 (04:31→22:15)
[2024-11-18 06:12] LABS: Urine Character Clear (Clear)
[2024-11-18 06:21] LABS: Urine Red Blood Cell 0-2 /HPF (0-2); Urine Squamous Cell 0-2 /LPF (Few); Urine White Cell 16-20 /HPF (0-5)
[2024-11-18] MEDS: SYNTHROID 25 MCG PO (07:11)
[2024-11-18 07:35] LABS: Hematocrit 35.6 % (37.0-47.0); Hemoglobin 11.9 g/dL (12.0-16.0); Mean Corp Hgb Conc. 33.4 g/dL (33.0-37.0); Mean Corpuscular Volume 93.9 fL (81.0-99.0); Nucleated Red Blood Cells % 0 %; Platelet Count 219 10^3/uL (130-400); Red Cell Dist. Width 13.6 % (11.5-14.5)
[2024-11-18 07:58] LABS: ALT (SGPT) 21 U/L (0-35); AST (SGOT) 28 U/L (14-36); Albumin 3.8 g/dl (3.5-5.0); Alkaline Phosphatase 61 U/L (38-126); Blood Urea Nitrogen 29 mg/dl (7-17); Calcium 8.6 mg/dl (8.4-10.2); Carbon Dioxide 24 mmol/L (22-30); Chloride 112 mmol/L (98-107); Estimated Creatinine Clearance 46 ml/min; Glucose 96 mg/dl (70-99); Potassium 4.3 mmol/L (3.5-5.1); Sodium 141 mmol/L (135-145); Total Protein 6.3 g/dl (6.3-8.2); eGFR > 60.00
[2024-11-18] MEDS: ASPIR LOW (ENTERIC COATED) 81 MG PO (08:59)
[2024-11-18] MEDS: HEPARIN 5000 UNITS SC ×2 (08:59→21:29)
--- NOTE | 2024-11-18 09:58 | W.PN.HOSP.TC ---
Today's Communication/Plan
-
see outlined plan below
Assessment / Plan
Assessment / Plan
Assessment:
Syncope
- suspect related to hypotension w/orthostasis vs vagal vs other
- CT head negative
- tele monitoring
- check Echo
- orthostatics normal, but after IVF
- BP improved with IVF; baseline SBP 90s per patient and her son
- PT/OT - no needs
UTI
- patient with confusion, urinary frequency
- start Rocephin, day 1 pending culture
Systolic murmur
- check Echo
Hypothyroidism
- continue levothyroxine
History of gastric ulcer
History of kidney stones
DVT ppx: Heparin
Code: DNR/DNI
Anticipated Discharge: 24 - 48 hours
Subjective/Interval History
-
Date of Service: November 18, 2024
resting comfortably
report some urinary frequency
reports baseline BP is 90s systolic
Objective Data
-
Labs:
Laboratory Results
11/18/24
06:30
WBC 8.8
Hgb 11.9 L
Hct 35.6 L
Plt Count 219
Sodium 141
Potassium 4.3
Chloride 112 H
Carbon Dioxide 24
BUN 29 H
Creatinine 0.8
Glucose 96
Calcium 8.6
Total Bilirubin 0.5
AST 28
ALT 21
Alkaline Phosphatase 61
Vital Signs:
Vital Signs
Temp Pulse Resp BP Pulse Ox
97.8 F 57 18 142/66 97
11/18/24 07:15 11/18/24 07:15 11/18/24 07:15 11/18/24 07:15 11/18/24 07:15
Physical Exam
-
General: No Apparent Distress
HEENT: Normocephalic and Atraumatic
Respiratory: Negative Wheezes
Cardiac: Regular Rhythm, S1/S2 and Murmur
GI: Soft and Nontender
Musculoskeletal: No Edema
Neuro: AO x 3
Psych: Calm
Data Reviewed
-
Total Time Spent with Patient (in minutes): 42
Labs: Labs Reviewed by me
--- NOTE | 2024-11-18 10:24 | CM ---
Addendum entered by Naye Rosa 11/18/24 12:57:
IA completed
Original Note:
Reviewed chart. Met with pt and son bedside. IBARRA given and placed on chart. Is independent in ADLs and IADLs, lives alone. Lives in an apartment at [facility]. No hx of O2, HC, SNF or DME. No insecurities identified. Confirmed PCP, Rx,
insurance, and drug coverage.
PCP : Ciara Knight
Rx: [facility]/ [facility]
Plan: Home no needs to [place]
[2024-11-18] MEDS: ROCEPHIN 1000 MG IV (10:36)
[2024-11-18] MEDS: STERILE WATER FOR INJECTION 10 ML IV (10:38)
--- NOTE | 2024-11-18 15:20 | CM ---
Pt off floor for surgical procedure. Returned to floor at 3PM. Will delay IA until tomorrow.
Plan: TBD
[2024-11-19] VITALS (8 sets, daily range): BP systolic 115–154; BP diastolic 60–77; PULSE 50–57
--- NOTE | 2024-11-19 05:30 | PTCARENOTE ---
pt HR sustaining in high 30s/low 40s early this morning while sleeping. otherwise vss, pt asymptomatic. HR then back up to high 50s/60s. WELLNESS GUIDE made aware, no new orders at this time. plan of care ongoing.
[2024-11-19] MEDS: SYNTHROID 25 MCG PO (06:09)
[2024-11-19] MEDS: NSS 1000 IV (06:09)
[2024-11-19 08:10] LABS: Hematocrit 32.2 % (37.0-47.0); Hemoglobin 10.7 g/dL (12.0-16.0); Mean Corp Hgb Conc. 33.2 g/dL (33.0-37.0); Mean Corpuscular Volume 93.9 fL (81.0-99.0); Platelet Count 198 10^3/uL (130-400); Red Cell Dist. Width 13.7 % (11.5-14.5)
[2024-11-19 08:50] LABS: Blood Urea Nitrogen 12 mg/dl (7-17); Calcium 8.4 mg/dl (8.4-10.2); Carbon Dioxide 26 mmol/L (22-30); Chloride 115 mmol/L (98-107); Estimated Creatinine Clearance 62 ml/min; Glucose 91 mg/dl (70-99); Potassium 4.0 mmol/L (3.5-5.1); Sodium 143 mmol/L (135-145); eGFR > 60.00
[2024-11-19] MEDS: ASPIR LOW (ENTERIC COATED) 81 MG PO (10:20)
[2024-11-19] MEDS: HEPARIN 5000 UNITS SC ×2 (10:20→21:20)
[2024-11-19] MEDS: STERILE WATER FOR INJECTION 10 ML IV (10:21)
[2024-11-19] MEDS: ROCEPHIN 1000 MG IV (10:21)
--- NOTE | 2024-11-19 11:22 | W.PN.HOSP.TC ---
Today's Communication/Plan
-
continue Abx pending final cultures
Cards eval for abnormal TTE with echodensity
son updated
IP level status per case management UR review
Assessment / Plan
Assessment / Plan
Assessment:
Syncope
- suspect related to hypotension w/orthostasis vs vagal vs other
- CT head negative
- tele monitoring
- Echo: with normal EF, normal LV function. Moderate (patient with systolic murmur)
- orthostatics normal
- BP improved with IVF; baseline SBP 90s per patient and her son
- PT/OT - no needs
E. Coli UTI
- patient with confusion, urinary frequency
- continue Rocephin, day 2 pending final culture
Echodensity in the left atrium on TTE
- CBC cards consulted; will setup outpatient GLO.
Hypothyroidism
- continue levothyroxine
History of gastric ulcer
History of kidney stones
DVT ppx: Heparin
Code: DNR/DNI
Anticipated Discharge: Within 24 hours
Subjective/Interval History
-
Date of Service: November 19, 2024
resting comfortably, no complaints at present
Objective Data
-
Labs:
Laboratory Results
11/19/24
07:22
WBC 7.0
Hgb 10.7 L
Hct 32.2 L
Plt Count 198
Sodium 143
Potassium 4.0
Chloride 115 H
Carbon Dioxide 26
BUN 12
Creatinine 0.6
Glucose 91
Calcium 8.4
Vital Signs:
Vital Signs
Temp Pulse Resp BP Pulse Ox
98.6 F 50 16 145/65 97
11/19/24 07:21 11/19/24 07:21 11/19/24 07:21 11/19/24 07:21 11/19/24 07:21
I&O
11/18/24 11/19/24 11/20/24
06:59 06:59 06:59
Intake Total 1500 / 1500
Balance 1500 / 1500
Physical Exam
-
General: No Apparent Distress
HEENT: Normocephalic and Atraumatic
Respiratory: Negative Wheezes
Cardiac: Regular Rhythm and S1/S2
GI: Soft and Nontender
Musculoskeletal: No Edema
Neuro: AO x 3
Hematologic / Lymphatic: No Lymphadenopathy
Psych: Calm
Data Reviewed
-
Total Time Spent with Patient (in minutes): 42
Labs: Labs Reviewed by me
--- NOTE | 2024-11-19 14:38 | CM ---
Reviewed chart. Met pt at bedside. Pt made aware of status change from Observation Status to Inpatient status. Possible GLO tomorrow.Continues on IV ABX.
Plan: Possible D/C tomorrow pending UA cs resu;ts
--- NOTE | 2024-11-19 14:59 | CON.CAR ---
Addendum entered and electronically signed by Danny Belle MD 11/19/24 15:41:
I saw and evaluated the patient, and I provided the substantive portion of the medical decision making.
I reviewed and agree with the note by MARIUM and it accurately reflects our care.
I personally performed the medical decision making of the this encounter and my assessment and plan is below:
79-year-old female with sinus bradycardia, nonischemic cardiomyopathy (EF 40-45%), and mild to moderate aortic stenosis who presents for syncope, thought to be vasovagal. She is also being treated for UTI. Cardiology is consulted for abnormal
echocardiogram. TTE from 11/18/2024 showed normal LVEF, mild to moderate aortic stenosis (peak/mean 32/22 mmHg), mild AR, and an abnormal echodensity in the left atrium, concerning for mass versus artifact. I personally reviewed the images.
Differential diagnosis includes myxoma versus reverberation artifact from thickened mitral valve. She has no complaints at the time of my interview.
Physical exam: RRR, systolic murmur, no lower extremity edema, clear lungs.
Telemetry: Sinus bradycardia, no long pauses or arrhythmias
Syncope: Presumed vasovagal on the background of chronic hypotension. Telemetry shows sinus bradycardia but no significant pauses or arrhythmias. Treatment for UTI per primary team.
Left atrial echodensity: Differential diagnosis includes myxoma, other mass, or reverberation artifact. We will set up outpatient GLO. Discussed this plan with the patient and she is amenable. I do not think this finding contributed to her
presentation; possible mass is likely too small to have caused any hemodynamic consequences.
She is safe for discharge from cardiovascular standpoint.
Original Note:
Consultation
Consultation Request
Date/Time Consultation Requested: 11/19/24 9a
Date/Time Consultation Performed: 11/19/24 2:30p
Requesting Provider: Dr. Knight
Performing Provider: MARIUM Ponce for Dr. Belle
Reason for Consultation: abnormal echo
Medical History
-
Chief Complaint: syncope
History of Present Illness:
Mrs. Dobson is an 79 yo female with sinus bradycardia, HLD, NICM EF 40-45%, moderate AR, PUD, and hypothyroidism, who presents to the ER from home after syncope. EMS noted a SBP 70 and she was given IVF. She was noted to have UTI and admitted to
the hospitalist service. We are consulted for an abnormal echo 11/18/24. Echo showed normal left ventricular systolic function EF 55 to 60%, mild to moderate aortic stenosis with a peak gradient of 32 mmHg and a mean gradient of 22 mmHg, mild
aortic regurgitation, echodensity in the left atrium, there is suspicion that the echodensity may represent artifact and there was a similar echodensity seen on the previous study as described. However based on the current images today cannot
entirely exclude left atrial mass.
Past Medical History
Past Medical History: Other (as above)
Social History
Tobacco: Former Smoker (quit age 21)
Personal:
Living: Alone
Family History
Family History: Reviewed & Not Pertinent
Allergies / Home Medications
Allergy/AdvReac Type Severity Reaction Status Date / Time
Sulfa (Sulfonamide Allergy Rash Verified 11/17/24 23:41
Antibiotics)
sulfisoxazole Allergy Rash Verified 11/17/24 23:41
tetracycline Allergy Rash Verified 11/17/24 23:41
Tetracyclines Allergy Rash Verified 11/17/24 23:41
�Medication �Instructions �Recorded �Confirmed �Type
levothyroxine 25 mcg tablet 25 mcg PO DAILY Thyroid 11/20/10 11/18/24 History
aspirin 81 mg tablet,delayed 81 mg PO DAILY Blood Clot 01/17/14 11/18/24 History
release (Guillermo Low Dose Aspirin) Prevention/Tx
Review of Systems
-
History Source: Patient
All other systems: Negative unless noted
Physical Exam
Vital Signs
Temp Pulse Resp BP Pulse Ox
98.2 F 61 16 134/60 96
11/19/24 11:59 11/19/24 11:59 11/19/24 11:59 11/19/24 11:59 11/19/24 11:59
Lab Results
11/19/24 07:22
11/19/24 07:22
Troponin I < 0.012 ng/ml 11/17/24 19:43
Physical Exam
General: Well Developed, Well Nourished and No Apparent Distress
HEENT: Normocephalic and Anicteric
Respiratory: Clear and Non Labored Respirations
Cardiac: S1/S2 and Regular Rhythm
Breast: Deferred by me
GI: Soft, Non Tender and Normal Bowel Sounds
Rectal: Deferred by Provider
Genito-urinary: Clear Urine
Musculoskeletal: No Clubbing, No Cyanosis and No Edema
Skin: Warm and Dry
Psych: Calm
Impression / Plan
-
Abnormal echo - echodensity in left atrium, cannot exclude LA mass.
- plan for outpatient GLO, our office will contact her to schedule this.
- asymptomatic.
Syncope - no further episodes or dizziness.
- tele showed sinus bradycardia w/o pauses.
- hypotension playing a role as well.
NICM - EF 45-50% on echo 05/2023.
- now EF normal 55-60%.
- not previously on GDMT due to baseline hypotension.
Valvular heart disease - mild/mod , mild AR on echo 11/18/24.
- asymptomatic.
Data Reviewed
-
EKG: Tracing Personally Visualized and interpreted
Labs: Labs Reviewed by me
Old Records: Reviewed
[2024-11-20 03:05] VITALS: BP 110/72
[2024-11-20] MEDS: SYNTHROID 25 MCG PO (05:47)
[2024-11-20 07:15] VITALS: BP 163/75
[2024-11-20] MEDS: ASPIR LOW (ENTERIC COATED) 81 MG PO (09:21)
[2024-11-20] MEDS: ROCEPHIN 1000 MG IV (09:21)
[2024-11-20] MEDS: HEPARIN 5000 UNITS SC (09:21)
[2024-11-20] MEDS: FLUSH (NSS) 2 FLUSH IV (09:22)
[2024-11-20] MEDS: STERILE WATER FOR INJECTION 10 ML IV (09:22)
--- NOTE | 2024-11-20 10:11 | W.PN.HOSP.TC ---
Today's Communication/Plan
-
dc to home
Assessment / Plan
Assessment / Plan
Assessment:
Syncope
- suspect related to hypotension w/orthostasis vs vagal vs other
- CT head negative
- tele monitoring
- Echo: with normal EF, normal LV function. Moderate (patient with systolic murmur)
- orthostatics normal
- BP improved with IVF; baseline SBP 90s per patient and her son
- PT/OT - no needs
E. Coli UTI - pansensitive
- patient with confusion, urinary frequency
- dc on Cefdinir x 4 days further - completed 3 days Rocephin in hospital
Echodensity in the left atrium on TTE
- CBC cards evaluated and will setup outpatient GLO.
Hypothyroidism
- continue levothyroxine
History of gastric ulcer
History of kidney stones
DVT ppx: Heparin
Code: DNR/DNI
More than 30 minutes spent in discharge including
Final examination of the patient
Summarizing hospital stay
Instructions for continuing care to all relevant caregivers
Preparation of discharge records, prescriptions, and referral forms
Total time spent (in minutes): 41
Anticipated Discharge: Today
Subjective/Interval History
-
Date of Service: November 20, 2024
resting comfortably, no complaints at present
Objective Data
-
Vital Signs:
Vital Signs
Temp Pulse Resp BP Pulse Ox
97.7 F 50 18 163/75 99
11/20/24 07:15 11/20/24 07:15 11/20/24 07:15 11/20/24 07:15 11/20/24 07:15
I&O
11/19/24 11/20/24 11/21/24
06:59 06:59 06:59
Intake Total 1500 / 1500 1420 / 1420
Balance 1500 / 1500 1420 / 1420
Physical Exam
-
General: No Apparent Distress
HEENT: Normocephalic and Atraumatic
Respiratory: Negative Wheezes
Cardiac: Regular Rhythm and S1/S2
GI: Soft
Genito-urinary: No Costovertebral Tender
Neuro: AO x 3
Psych: Calm
Data Reviewed
-
Total Time Spent with Patient (in minutes): 42
Labs: Labs Reviewed by me
--- NOTE | 2024-11-20 10:17 | W.DS.TRANS ---
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
-
Discharge Instructions:
Discharge Diagnosis/Procedures E. Coli UTI, syncope from low blood pressure,
echo density L atrium
Diet Regular
Activity No restrictions
Bathing Restrictions None
Others Tests GLO (internal echocardiogram) with DR. Belle
- call office on Friday to get update about when
this is scheduled for
Instructions:
Stand-Alone Forms:
Changes to Home Medications: No
Discharge Medications:
DC Medications w/original date entered in [email or web address]
levothyroxine 25 mcg tablet 25 mcg PO DAILY Thyroid 11/20/10
aspirin 81 mg tablet,delayed release (Guillermo Low Dose Aspirin) 81 mg PO DAILY Blood Clot Prevention/Tx 01/17/14
cefdinir 300 mg capsule 300 mg PO BID #8 caps 11/20/24
Home Medication Changes
Pending Results: No
Total time spent discharging patient (in min): 42
--- NOTE | 2024-11-20 11:03 | CM ---
Reviewed the chart notes and spoke with the patient at the bedside and son via telephone. IMM reviewed. Patient's son to provide transportation home. No additional needs identified at this time.
[2024-11-20 11:22] VITALS: BP 141/78
== END 2024-11-20 14:23 | disposition home or self-care (01) | DRG 315 ==
LOC: 4 EAST ACU 11:34
PROVIDERS: Nurse Practitioner; ADMITTING PHYSICIAN Hospitalist; ATTENDING PHYSICIAN Internal Medicine; CONSULT PHYSICIAN Student in an Organized Health Care Education/Training Program; EMERGENCY PHYSICIAN Emergency Medicine; FAMILY PHYSICIAN Internal Medicine
DX: I95.89 Other hypotension (principal); I42.8 Other cardiomyopathies; N39.0 Urinary tract infection, site not specified; E03.9 Hypothyroidism, unspecified; E78.5 Hyperlipidemia, unspecified; I35.0 Nonrheumatic aortic (valve) stenosis; Z66 Do not resuscitate; D15.1 Benign neoplasm of heart; I35.8 Other nonrheumatic aortic valve disorders; B96.20 Unspecified Escherichia coli [E. coli] as the cause of diseases classified elsewhere; Z87.891 Personal history of nicotine dependence; Z88.2 Allergy status to sulfonamides; Z88.1 Allergy status to other antibiotic agents; Z87.11 Personal history of peptic ulcer disease; Z79.890 Hormone replacement therapy; Z79.82 Long term (current) use of aspirin; Z79.899 Other long term (current) drug therapy
CPT/HCPCS: 70450; 80048; 80053; 81003; 81015; 82962; 84443; 84484; 85025; 85027; 87070; 87086; 87088; 87186; 93005; 93306; 97116; 97162; 97166; 99285

== ENCOUNTER 2024-12-01 06:51 | Day surgery (SDC) | payer MEDICARE, OTHER, SELFPAY | END 2024-12-01 09:07 | LOC: CATH 06:51 | PROVIDERS: ATTENDING PHYSICIAN Internal Medicine; FAMILY PHYSICIAN Internal Medicine | DX: R93.1 Abnormal findings on diagnostic imaging of heart and coronary circulation (principal); R55 Syncope and collapse; I31.39 Other pericardial effusion (noninflammatory); I08.3 Combined rheumatic disorders of mitral, aortic and tricuspid valves | CPT/HCPCS: 93312; 93325; 93320 ==

== ENCOUNTER → 2025-01-21 13:49 | Outpatient (REF) | payer MEDICARE, OTHER, SELFPAY | LOC: WDC 13:49 | PROVIDERS: ATTENDING PHYSICIAN Nurse Practitioner Family; FAMILY PHYSICIAN Internal Medicine | DX: Z12.31 Encounter for screening mammogram for malignant neoplasm of breast (principal); M81.0 Age-related osteoporosis without current pathological fracture | CPT/HCPCS: 77063; 77067; 77080 ==